=== PATIENT | male | born 1990 | race African-American/Black ===

== ENCOUNTER 2017-05-16 01:01 | Emergency (ER) | payer MEDICAID ==
[~2017-05-16] VITALS: Ht 185.4 cm; Wt 99.0 kg
[2017-05-16] MEDS ORDERED: ONDANSETRON HCL 4MG/2ML VIAL IV STA (02:11)
[2017-05-16] MEDS ORDERED: SODIUM CHLORIDE 0.9% 1,000 ML IV ONE (02:11)
[2017-05-16] MEDS ORDERED: MORPHINE SULFATE 4 MG/ML CPJ (NOT FOR IM USE) IV STA (02:11)
[2017-05-16] MEDS ORDERED: LORAZEPAM 2MG/ML CPJ IV ONE (02:15)
[2017-05-16] MEDS ORDERED: LEVETIRACETAM 1,000 MG in SODIUM CHLORIDE 0.9% 100 ML IV ONE (02:15)
[2017-05-16 02:29] LABS: EOSINOPHILS % 3.7 % (0.0-5.0); HEMATOCRIT. 37.1 % (42.0-52.0); HEMOGLOBIN. 12.3 g/dL (14.0-18.0); LYMPHOCYTES % 50.5 % (20.0-50.0); MEAN CORPUSCULAR HEMOGLOBIN 26.4 pg (28.0-32.0); MEAN CORPUSCULAR VOLUME 79.5 fL (80.0-94.0); MEAN PLATELET VOLUME 8.3 fl (7.4-10.4); MONOCYTES % 8.1 % (2.0-8.0); NEUTROPHILS % 36.7 % (40.0-76.0); PLATELET 287 x1000/uL (130-400); RED BLOOD CELL COUNT 4.66 mill/uL (4.7-6.1); RED CELL DISTRIBUTION WIDTH 14.5 % (11.6-14.6)
[2017-05-16 02:36] LABS: CHLORIDE 101 mEq/L (98-107)
[2017-05-16 02:43] LABS: CARBON DIOXIDE 29 mEq/L (21-32)
[2017-05-16 05:30] VITALS: BP 123/61
== END 2017-05-16 06:02 | disposition home or self-care (01) ==
LOC: ER 01:01
DX: R56.9 Unspecified convulsions (principal); F17.210 Nicotine dependence, cigarettes, uncomplicated; Z86.19 Personal history of other infectious and parasitic diseases
CPT/HCPCS: 36415; 71010; 80053; 85025; 93005; 96365; 96366; 96375; 99285; J1953; J2060; J2270; J2405; J7030; Z7610; J7050

== ENCOUNTER 2018-01-01 11:41 | Emergency (ER) | payer MEDICAID ==
[~2018-01-01] VITALS: Ht 190.5 cm; Wt 101.0 kg
[2018-01-01 12:10] VITALS: BP 136/66
== END 2018-01-01 13:02 | disposition left against medical advice (07) ==
LOC: ER 11:48
DX: Z53.21 Procedure and treatment not carried out due to patient leaving prior to being seen by health care provider (principal)
CPT/HCPCS: 82962; 93005

== ENCOUNTER 2019-11-16 21:51 | Emergency (ER) | payer MEDICAID ==
[~2019-11-16] VITALS: Ht 185.4 cm; Wt 96.8 kg
[2019-11-17] MEDS ORDERED: KETOROLAC 30MG/ML VIAL IM ONE (00:15)
[2019-11-17] MEDS ORDERED: METOCLOPRAMIDE HCL 10MG TABLET PO ONE (00:15)
[2019-11-17] MEDS ORDERED: DIPHENHYDRAMINE 25MG CAPSULE PO ONE (00:15)
[2019-11-17 01:32] VITALS: BP 121/79
== END 2019-11-17 02:12 | disposition home or self-care (01) ==
LOC: ER 21:51
DX: R51 Headache (principal); R03.0 Elevated blood-pressure reading, without diagnosis of hypertension; G40.909 Epilepsy, unspecified, not intractable, without status epilepticus
CPT/HCPCS: 96372; 99283; J1885; J8597; Q0163